=== PATIENT | female | born 1935 | race Caucasian/White ===

== ENCOUNTER → 2016-09-13 | Day surgery (SDC) | payer MEDICARE ==
[~2016-09-13] MED LIST: DEXAMETHASONE SOD PHOS 4 MG/ML VIAL ONE; EPINEPHrine HCL (1:1000) 1 MG/ML VIAL ONE; HYDR50TA5 PO; LACTATED RINGER'S 1000 ML INJ 1,000 ML ONE; LISI-589 PO; MOXIFLOXACIN 0.5% OPHT SOLN 3 ML BTL ONE; ONDANSETRON HCL 4 MG/2 ML VIAL IV PUSH ONE; PHENYLEPHRINE HCL 10% OPTH SOLN 5 ML BTL ONE; POTA-243 PO; PROPOFOL 200 MG/20 ML AMP IV ONE; SODIUM CHLORIDE 0.9% INJ 10 ML ONE; TETRACAINE 0.5% OPTH SOLN 15 ML BTL ONE; TOBRAMYCIN/DEXAMETHASONE OPTH OINT 3.5 GM TUBE ONE; TREN400T PO; ceFAZolin INJ 1,000 MG VIAL ONE; prednisoLONE ACETATE 1% OPHT SUSP 5 ML BTL ONE
--- NOTE | 2016-09-15 08:22 | MP ---
cc: GRACIELA RAMIREZ MD DATE OF SURGERY 09/14/2016 DATE OF 1935 PREOPERATIVE DIAGNOSIS Macula off retinal detachment, macular hole left eye. POSTOPERATIVE DIAGNOSIS Macula off retinal detachment, macular hole left eye. PROCEDURE Pars plana vitrectomy, removal of internal limiting membrane/epiretinal membrane, retinal detachment repair, air-fluid exchange, endolaser, insertion of 15% C3F8 gas left eye. ANESTHESIA Dr. Ramsey, general BLOOD LOSS Less than 1 cc. COMPLICATIONS None INDICATIONS FOR PROCEDURE This is a delightful patient who presented to the office with a full-thickness macular hole and was found to have a worsening macular retinal detachment. The patient elected for surgical correction after cataract extraction and intraocular lens placement which allowed adequate view of the posterior pole for surgical correction. PROCEDURE NOTE After informed consent was obtained, the patient was brought to the operating room and general anesthesia was established. The left eye was prepped and draped in a sterile fashion with Betadine in the conjunctival fornix. A three port pars plana vitrectomy was established with a self-retaining infusion cannula. Core vitreous was evacuated and vitreous traction relieved. The ILM/ERM complex was removed with ILM forceps after being stained with ICG. Subretinal fluid was removed and the retina reapproximated. Air-fluid exchange was carried out and peripheral laser was done surrounding retinal defects. Scleral depression examination revealed no untreated retinal holes, tears or detachments and remained nicely reattached. 15% C3F8 gas was instilled. Trocars removed and sclerotomies closed with several Vicryl suture. Conjunctiva was reapproximated with 6-0 plain gut. A subconjunctival injection of Ancef and dexamethasone were given. The eye was patched with Tobramycin ointment. The patient was brought to the recovery room in stable condition. She will continue to followup with [facility] for her postoperative care. MD JAIME Matson/DJL /10:41 PM /8:14 AM
== END | disposition home or self-care (01) ==
LOC: ESDC 08:14
PROVIDERS: ATTEND Ophthalmology
DX: H33.22 Serous retinal detachment, left eye (principal); H35.342 Macular cyst, hole, or pseudohole, left eye
CPT/HCPCS: 00145; 67108; J0171; J0690; J1100; J2405; J3010; J7120